=== PATIENT | male | born 1975 | race African-American/Black ===

== ENCOUNTER 2024-06-06 13:18 | Inpatient (IN) | payer OTHER ==
[2024-06-06 14:20] VITALS: BMI 20.6
[2024-06-06] MEDS ORDERED: BENZOCAINE/MENTHOL (CHLORASEPTIC ) LOZENGE MM PRN (16:35)
[2024-06-06] MEDS ORDERED: DICYCLOMINE HCL 10 MG CAPSULE PO PRN (16:35)
[2024-06-06] MEDS ORDERED: guaiFENesin 600 MG TABLET.ER (FP) PO PRN (16:35)
[2024-06-06] MEDS ORDERED: MAG HYDROX/AL HYDROX/SIMETH 30 ML UNIT-DOSE CUP PO PRN (16:35)
[2024-06-06] MEDS ORDERED: ONDANSETRON *ODT* 4 MG TABLET SL PRN (16:35)
[2024-06-06] MEDS ORDERED: POLYETHYLENE GLYCOL (HEALTHYLAX) 3350 17 GM PACKET PO PRN (16:35)
[2024-06-06] MEDS ORDERED: ACETAMINOPHEN 325 MG TABLET (FP) PO PRN (16:35)
[2024-06-06] MEDS ORDERED: LOPERAMIDE HCL 2 MG CAPSULE PO PRN (16:35)
[2024-06-06] MEDS ORDERED: BENZONATATE 200 MG CAPSULE PO PRN (16:35)
[2024-06-06] MEDS ORDERED: NALOXONE (NARCAN) HCL 4 MG/0.1 ML SPRAY NS PRN (16:35)
[2024-06-06] MEDS ORDERED: BISMUTH SUBSALICYLATE 524 MG/30 ML PO PRN (16:35)
[2024-06-06] MEDS ORDERED: MAGNESIUM HYDROX 2400MG/30ML ORAL SUSPENSION 30 ML CUP PO PRN (16:35)
[2024-06-06] MEDS ORDERED: IBUPROFEN 400 MG TABLET (FP) PO PRN (16:35)
[2024-06-06] MEDS ORDERED: IBUPROFEN 600 MG TABLET (FP) PO PRN (16:35)
[2024-06-06] MEDS ORDERED: ALBUTEROL SO4 HFA INHALER IH PRN (16:51)
[2024-06-06] MEDS: METHOCARBAMOL 500 MG TABLET PO PRN (18:37)
[2024-06-06] MEDS: hydrOXYzine PAMOATE 25 MG CAPSULE (FP) PO PRN (18:37)
[2024-06-06] MEDS: NALOXONE (NYS OPIOID OVERDOSE PROGRAM) 4 MG/0.1 ML SPRAY NS ONE (19:03)
[2024-06-06] MEDS: chlordiazePOXIDE HCL 25 MG CAPSULE PO PRN (19:24)
[2024-06-06] MEDS: THIAMINE 100 MG TABLET PO SCH (22:15)
[2024-06-06] MEDS: MELATONIN 5 MG TABLETS PO SCH (22:15)
[2024-06-06] MEDS: chlordiazePOXIDE HCL 25 MG CAPSULE PO SCH (22:16)
[2024-06-07] MEDS: PRENATAL VITAMINS W/ FOLIC ACID TABLET (FP) PO SCH (10:14)
[2024-06-07 10:18] LABS: HEMATOCRIT 36.7 % (35.4-49); HEMOGLOBIN 12.1 GM/dL (11.7-16.9); MCH 31.7 pg (25.7-33.7); MCHC 33.1 g/dl (32.0-35.9); MEAN CELL VOLUME 95.9 fl (80-96); MEAN PLT VOLUME 8.9 fl (7.5-11.1); PLATELET COUNT 80 10^3/uL (134-434); RBC 3.82 M/mm3 (4.00-5.60); RDW 13.1 % (11.9-15.9); WHITE BLOOD COUNT 2.4 K/mm3 (4.0-10.0)
[2024-06-07] MEDS ORDERED: TUBERCULIN PPD 5 TU/0.1ML VIAL ID ONE (11:02)
[2024-06-07 11:22] LABS: CHLORIDE 97 mmol/L (98-107); POTASSIUM 3.3 mmol/L (3.5-5.1); SODIUM 136 mmol/L (136-145)
[2024-06-07 11:27] LABS: ALBUMIN 3.8 g/dl (3.4-5.0); ANION GAP 10 mmol/L (4-13); BLOOD UREA NITROGEN 9.4 mg/dL (7-18); CALCIUM 9.1 mg/dL (8.5-10.1); CO2 28 mmol/L (21-32); GLUCOSE,RANDOM 83 mg/dL (74-106)
[2024-06-07 11:30] LABS: CREATININE 0.7 mg/dL (0.55-1.3); SGPT/ALT 85 U/L (13-61)
[2024-06-07 11:32] LABS: BILIRUBIN,TOTAL 1.2 mg/dL (0.2-1); TOT PROT 7.3 g/dl (6.4-8.2)
[2024-06-07 11:33] LABS: ALK PHOS 88 U/L (45-117)
[2024-06-07 11:37] LABS: SGOT/AST 184 U/L (15-37)
[2024-06-07] MEDS: POTASSIUM CHLORIDE ORAL LIQUID 20 MEQ/15 ML PO ONE ×2 (11:58→22:36)
[2024-06-08] MEDS: chlordiazePOXIDE HCL 25 MG CAPSULE PO SCH (06:00)
[2024-06-08 12:14] LABS: POTASSIUM 3.7 mmol/L (3.5-5.1)
[2024-06-08 12:20] LABS: CALCIUM 9.8 mg/dL (8.5-10.1)
[2024-06-08 12:21] LABS: BLOOD UREA NITROGEN 7.7 mg/dL (7-18)
[2024-06-08 12:24] LABS: CREATININE 0.7 mg/dL (0.55-1.3)
[2024-06-08 17:03] VITALS: BP 126/90; PULSE 130; RESP 18; TEMP 97.8
[2024-06-08] MEDS: NALOXONE (NYS OPIOID OVERDOSE PROGRAM) 4 MG/0.1 ML SPRAY NS PRN (17:04)
[2024-06-09] MEDS ORDERED: chlordiazePOXIDE HCL 10 MG CAPSULE PO PRN
[2024-06-09] MEDS ORDERED: chlordiazePOXIDE HCL 10 MG CAPSULE PO SCH (05:00)
[2024-06-10] MEDS ORDERED: chlordiazePOXIDE HCL 10 MG CAPSULE PO SCH (05:00)
[2024-06-11] MEDS ORDERED: chlordiazePOXIDE HCL 10 MG CAPSULE PO ONE (05:00)
== END 2024-06-08 17:16 | disposition left against medical advice (07) | DRG 770 ==
LOC: YASAS 13:18 → Y3N 16:46
PROVIDERS: ADMIT Surgery; ATTEND Surgery
PROC: HZ2ZZZZ Detoxification Services for Substance Abuse Treatment (ICD-10-PCS; principal; 2024-06-06)
DX: F10.230 Alcohol dependence with withdrawal, uncomplicated (principal); F17.210 Nicotine dependence, cigarettes, uncomplicated; F32.A Depression, unspecified; E87.6 Hypokalemia; E78.5 Hyperlipidemia, unspecified; I10 Essential (primary) hypertension; J45.20 Mild intermittent asthma, uncomplicated; Z86.69 Personal history of other diseases of the nervous system and sense organs
CPT/HCPCS: 36415; 80048; 80053; 80305; 80307; 85027; 86780; 93005; 93010

== ENCOUNTER 2024-06-18 12:39 | Inpatient (IN) | payer OTHER ==
[2024-06-18] MEDS ORDERED: ONDANSETRON *ODT* 4 MG TABLET SL PRN (14:59)
[2024-06-18] MEDS ORDERED: LOPERAMIDE HCL 2 MG CAPSULE PO PRN (14:59)
[2024-06-18] MEDS ORDERED: IBUPROFEN 600 MG TABLET (FP) PO PRN (14:59)
[2024-06-18] MEDS ORDERED: MAGNESIUM HYDROX 2400MG/30ML ORAL SUSPENSION 30 ML CUP PO PRN (14:59)
[2024-06-18] MEDS ORDERED: METHOCARBAMOL 500 MG TABLET PO PRN (14:59)
[2024-06-18] MEDS ORDERED: DICYCLOMINE HCL 10 MG CAPSULE PO PRN (14:59)
[2024-06-18] MEDS ORDERED: BENZOCAINE/MENTHOL (CHLORASEPTIC ) LOZENGE MM PRN (14:59)
[2024-06-18] MEDS ORDERED: POLYETHYLENE GLYCOL (HEALTHYLAX) 3350 17 GM PACKET PO PRN (14:59)
[2024-06-18] MEDS ORDERED: IBUPROFEN 400 MG TABLET (FP) PO PRN (14:59)
[2024-06-18] MEDS ORDERED: hydrOXYzine PAMOATE 25 MG CAPSULE (FP) PO PRN (14:59)
[2024-06-18] MEDS ORDERED: BISMUTH SUBSALICYLATE 262 MG/15 ML BTL PO PRN (14:59)
[2024-06-18] MEDS ORDERED: NALOXONE (NARCAN) HCL 4 MG/0.1 ML SPRAY NS PRN (14:59)
[2024-06-18] MEDS ORDERED: ACETAMINOPHEN 325 MG TABLET (FP) PO PRN (14:59)
[2024-06-18] MEDS ORDERED: BENZONATATE 200 MG CAPSULE PO PRN (14:59)
[2024-06-18] MEDS ORDERED: guaiFENesin 600 MG TABLET.ER (FP) PO PRN (14:59)
[2024-06-18] MEDS ORDERED: MAG HYDROX/AL HYDROX/SIMETH 30 ML UNIT-DOSE CUP PO PRN (14:59)
[2024-06-18] MEDS ORDERED: chlordiazePOXIDE HCL 25 MG CAPSULE ONE (15:46)
[2024-06-18] MEDS ORDERED: PRENATAL VITAMINS W/ FOLIC ACID TABLET (FP) PO ONE (15:46)
[2024-06-18] MEDS ORDERED: NICOTINE 14 MG/24 HOURS TOPICAL PATCH TD ONE (15:46)
[2024-06-18] MEDS: PRENATAL VITAMINS W/ FOLIC ACID TABLET (FP) PO SCH (15:52)
[2024-06-18] MEDS: NICOTINE 14 MG/24 HOURS TOPICAL PATCH TD SCH (15:52)
[2024-06-18] MEDS: chlordiazePOXIDE HCL 25 MG CAPSULE PO PRN (15:52)
[2024-06-18] MEDS: chlordiazePOXIDE HCL 25 MG CAPSULE PO SCH (22:21)
[2024-06-18] MEDS: MELATONIN 5 MG TABLETS PO SCH (22:22)
[2024-06-18] MEDS: THIAMINE 100 MG TABLET PO SCH (22:22)
[2024-06-20] MEDS: chlordiazePOXIDE HCL 25 MG CAPSULE PO SCH (05:24)
[2024-06-20 12:33] LABS: BASO % 1.2 % (0-2.0); EOS % 1.5 % (0-4.5); HEMATOCRIT 37.9 % (35.4-49); HEMOGLOBIN 12.6 GM/dL (11.7-16.9); LYMPH % 16.2 % (8-40); MCH 32.1 pg (25.7-33.7); MCHC 33.2 g/dl (32.0-35.9); MEAN CELL VOLUME 96.6 fl (80-96); MEAN PLT VOLUME 8.9 fl (7.5-11.1); MONO % 12.2 % (3.8-10.2); NEUT % 68.9 % (42.8-82.8); PLATELET COUNT 209 10^3/uL (134-434); RBC 3.92 M/mm3 (4.00-5.60); RDW 12.8 % (11.9-15.9); WHITE BLOOD COUNT 4.7 K/mm3 (4.0-10.0)
[2024-06-20] MEDS ORDERED: ALBUTEROL SO4 HFA INHALER IH PRN (12:44)
[2024-06-21] MEDS ORDERED: chlordiazePOXIDE HCL 10 MG CAPSULE PO PRN
[2024-06-21] MEDS: chlordiazePOXIDE HCL 10 MG CAPSULE PO SCH (05:30)
[2024-06-22] MEDS: chlordiazePOXIDE HCL 10 MG CAPSULE PO SCH (05:34)
[2024-06-22 08:41] VITALS: BP 104/71; PULSE 73; RESP 17; TEMP 98.4
[2024-06-22] MEDS: NALOXONE (NYS OPIOID OVERDOSE PROGRAM) 4 MG/0.1 ML SPRAY NS PRN (12:21)
[2024-06-23] MEDS ORDERED: chlordiazePOXIDE HCL 10 MG CAPSULE PO ONE (05:00)
== END 2024-06-22 12:07 | disposition home or self-care (01) | DRG 775 ==
LOC: YASAS 12:39 → Y6N 15:58
PROVIDERS: ADMIT Allergy & Immunology; ATTEND Allergy & Immunology
PROC: HZ2ZZZZ Detoxification Services for Substance Abuse Treatment (ICD-10-PCS; principal; 2024-06-18)
DX: F10.230 Alcohol dependence with withdrawal, uncomplicated (principal); F17.210 Nicotine dependence, cigarettes, uncomplicated; F10.282 Alcohol dependence with alcohol-induced sleep disorder; F10.24 Alcohol dependence with alcohol-induced mood disorder; D69.6 Thrombocytopenia, unspecified; D72.819 Decreased white blood cell count, unspecified; E78.5 Hyperlipidemia, unspecified; I10 Essential (primary) hypertension; J45.30 Mild persistent asthma, uncomplicated
CPT/HCPCS: 36415; 80305; 80307; 85025